=== PATIENT | male | born 1970 | race Caucasian/White ===

== ENCOUNTER → 2016-12-09 | Outpatient (CLI) | payer BC, OTHER ==
[2016-12-09 12:51] LABS: BLOOD UREA NITROGEN 13 mg/dl (7-18); BUN/CREATININE RATIO 12.9 (10-20); CALCIUM 9.4 mg/dl (8.5-10.1); CARBON DIOXIDE 27 mmol/L (21-32); CHLORIDE 108 mmol/L (98-107); CHOLESTEROL 218 mg/dl (0-200); CHOLESTEROL/HDL RATIO 3.1; GLUCOSE 91 mg/dl (70-99); HDL CHOLESTEROL 71 mg/dl; LDL CHOLESTEROL CALCULATED 125 mg/dl; POTASSIUM 3.9 mmol/L (3.5-5.1); SODIUM 142 mmol/L (136-145); TRIGLYCERIDES 110 mg/dl (0-150); VERY LOW DENSITY LIPOPROT CALC 22 mg/dl
== END | disposition home or self-care (01) ==
LOC: C.LABPVFM 09:29
PROVIDERS: ATTEND Nurse Practitioner
DX: I10 Essential (primary) hypertension (principal)

== ENCOUNTER → 2017-06-09 | Outpatient (CLI) | payer BC, OTHER ==
[2017-06-09 12:54] LABS: BLOOD UREA NITROGEN 18 mg/dl (7-18); BUN/CREATININE RATIO 22.7 (10-20); CALCIUM 9.5 mg/dl (8.5-10.1); CARBON DIOXIDE 23 mmol/L (21-32); CHLORIDE 110 mmol/L (98-107); GLUCOSE 87 mg/dl (70-99); POTASSIUM 3.9 mmol/L (3.5-5.1); SODIUM 141 mmol/L (136-145)
== END | disposition home or self-care (01) ==
LOC: C.LABPVFM 10:23
PROVIDERS: ATTEND Nurse Practitioner
DX: G40.909 Epilepsy, unspecified, not intractable, without status epilepticus (principal); I10 Essential (primary) hypertension

== ENCOUNTER → 2017-12-07 | Outpatient (CLI) | payer BC, OTHER ==
[2017-12-07 14:07] LABS: BLOOD UREA NITROGEN 14 mg/dl (7-18); CARBON DIOXIDE 24 mmol/L (21-32); CHOLESTEROL 219 mg/dl (0-200); GLUCOSE 89 mg/dl (70-99); POTASSIUM 3.6 mmol/L (3.5-5.1); SODIUM 139 mmol/L (136-145)
[2017-12-07 14:11] LABS: LDL CHOLESTEROL CALCULATED 119 mg/dl
== END | disposition home or self-care (01) ==
LOC: C.LABPVFM 09:48
PROVIDERS: ATTEND Nurse Practitioner
DX: I10 Essential (primary) hypertension (principal); Z13.220 Encounter for screening for lipoid disorders